=== PATIENT | female | born 1995 | race Asian ===

== ENCOUNTER 2017-01-23 15:04 | Emergency (ER) | payer OTHER ==
[2017-01-23] MEDS ORDERED: Ondansetron INJ* 2 MG/ML VIAL IV ONE (15:34)
[2017-01-23] MEDS ORDERED: NS 0.9% 1000 ML* 2,000 ML IV ONE (15:34)
[2017-01-23 15:51] LABS: Add Diff/Slide Review? Slide Review Added; Comments Flag Yes; Hematocrit 40 % (35-47); Hemoglobin 14.1 g/dl (12.0-16.0); Mean Corpuscular HGB Conc 35 g/dl (31-36); Mean Corpuscular Hemoglobin 31 pg (27-31); Mean Corpuscular Volume 88 fL (80-97); Mean Platelet Volume 6 um3 (7.4-10.4); Red Blood Count 4.57 10^6/ul (4.0-5.4); Red Cell Distribution Width 13 % (10.5-15); White Blood Count 8.3 10^3/ul (3.5-10.8)
[2017-01-23 16:06] LABS: ALT 16 U/L (7-52); AST 21 U/L (13-39); Albumin 4.5 g/dL (3.2-5.2); Alkaline Phosphatase 53 U/L (34-104); Anion Gap 11 mmol/L (2-11); BUN/Creatinine Ratio 20.3 (8-20); Blood Urea Nitrogen 13 mg/dL (6-24); C Reactive Protein < 1.00 mg/L (< 5.00); CO2 Carbon Dioxide 25 mmol/L (22-32); Calcium 9.4 mg/dL (8.6-10.3); Chloride 102 mmol/L (101-111); EGFR African American 150.6 (>60); EGFR Non-African American 117.1 (>60); Globulin 3.4 g/dL (2-4); Glucose 84 mg/dL (70-100); Lipase 16 U/L (11.0-82.0); Potassium 3.5 mmol/L (3.5-5.0); Sodium 138 mmol/L (133-145); Total Protein 7.9 g/dL (6.4-8.9)
[2017-01-23] MEDS ORDERED: Ondansetron ODT TAB* 4 MG PO ONE (16:34)
--- NOTE | 2017-01-23 17:07 | ED ---
Osiris Ford Emily, scribed for Lenin Pathak MD on 01/23/17 at 1534 . Complex/Multi-Sys Presentation - HPI Summary HPI Summary: This patient is a 21 year old F presenting [place] [facility] accompanied by friend with a chief complaint of nausea and vomiting that began this morning. The patient rates the pain 0/10 in severity. Symptoms aggravated by nothing. Symptoms alleviated by nothing. Patient reports infrequent urination, headache, and dizziness (room-spinning). Patient denies nasal discharge, sore throat, cough, diarrhea, and abd pain. Patient denies sick contacts at home. - History Of Current Complaint Chief Complaint: EDNauseaVomitDiarrh Time Seen by Provider: 01/23/17 15:26 Hx Obtained From: Patient Onset/Duration: Sudden Onset, Lasting Hours, Still Present Timing: Constant Severity Currently: Mild Severity Initially: Mild Associated Signs And Symptoms: Positive: Other - Positive infrequent urination, headache and dizziness (room-spinning). Negative nasal discharge, sore throat, cough, diarrhea, and abd pain - Allergies/Home Medications Allergies/Adverse Reactions: Allergies Allergy/AdvReac Type Severity Reaction Status Date / Time No Known Allergies Allergy Verified 01/23/17 15:19 PMH/Surg Hx/FS Hx/Imm Hx Previously Healthy: Yes Endocrine/Hematology History: Denies: Hx Diabetes Cardiovascular History: Denies: Hx Hypertension Infectious Disease History: No Infectious Disease History: Denies: Traveled Outside the [place] in Last 30 Days - Family History Known Family History: Negative: Cardiac Disease, Diabetes - Social History Occupation: Student Lives: Dormitory/Roommates Alcohol Use: Occasionally Review of Systems Negative: Sore Throat, Nasal Discharge Negative: Cough Positive: Vomiting, Nausea. Negative: Abdominal Pain, Diarrhea Positive: other - Positive infrequent urination Neurological: Other - Positive dizziness Positive: Headache All Other Systems Reviewed And Are Negative: Yes Physical Exam Triage Information Reviewed: Yes Vital Signs On Initial Exam: Initial Vitals Temp Pulse Resp BP Pulse Ox 97.8 F 88 14 124/74 100 01/23/17 15:14 01/23/17 15:14 01/23/17 15:14 01/23/17 15:14 01/23/17 15:14 Vital Signs Reviewed: Yes Appearance: Positive: Well-Appearing, No Pain Distress Skin: Positive: Warm, Skin Color Reflects Adequate Perfusion, Dry Head/Face: Positive: Normal Head/Face Inspection Eyes: Positive: EOMI, CINDY ENT: Positive: Other - Oral mucosa slightly dry Neck: Positive: Supple, Nontender Respiratory/Lung Sounds: Positive: Clear to Auscultation, Breath Sounds Present Cardiovascular: Positive: RRR Abdomen Description: Positive: Nontender, Soft Bowel Sounds: Positive: Present Musculoskeletal: Positive: Normal, Strength/ROM Intact Neurological: Positive: Normal, Sensory/Motor Intact, Alert, Oriented to Person Place, Time Psychiatric: Positive: Affect/Mood Appropriate Diagnostics - Vital Signs Vital Signs Temp Pulse Resp BP Pulse Ox 01/23/17 15:14 97.8 F 88 14 124/74 100 - Laboratory Lab Results: Lab Results 01/23/17 01/23/17 01/23/17 Range/Units 15:40 15:40 15:40 WBC 8.3 (3.5-10.8) 10^3/ul RBC 4.57 (4.0-5.4) 10^6/ul Hgb 14.1 (12.0-16.0) g/dl Hct 40 (35-47) % MCV 88 (80-97) fL MCH 31 (27-31) pg MCHC 35 (31-36) g/dl RDW 13 (10.5-15) % Plt Count 404 (150-450) 10^3/ul MPV 6 L (7.4-10.4) um3 Neut % (Auto) 83.5 H (38-83) % Lymph % (Auto) 5.7 L (25-47) % [place] % (Auto) 8.8 (1-9) % Eos % (Auto) 1.5 (0-6) % Baso % (Auto) 0.5 (0-2) % Absolute Neuts (auto) 7.0 (1.5-7.7) 10^3/ul Absolute Lymphs (auto) 0.5 L (1.0-4.8) 10^3/ul Absolute Monos (auto) 0.7 (0-0.8) 10^3/ul Absolute Eos (auto) 0.1 (0-0.6) 10^3/ul Absolute Basos (auto) 0 (0-0.2) 10^3/ul Absolute Nucleated RBC 0.04 10^3/ul Nucleated RBC % 0.5 Sodium 138 (133-145) mmol/L Potassium 3.5 (3.5-5.0) mmol/L Chloride 102 (101-111) mmol/L Carbon Dioxide 25 (22-32) mmol/L Anion Gap 11 (2-11) mmol/L BUN 13 (6-24) mg/dL Creatinine 0.64 (0.51-0.95) mg/dL Est GFR ( Amer) 150.6 (>60) Est GFR (Non-Af Amer) 117.1 (>60) BUN/Creatinine Ratio 20.3 H (8-20) Glucose 84 (70-100) mg/dL Lactic Acid 1.8 (0.5-2.0) mmol/L Calcium 9.4 (8.6-10.3) mg/dL Total Bilirubin 0.50 (0.2-1.0) mg/dL AST 21 (13-39) U/L ALT 16 (7-52) U/L Alkaline Phosphatase 53 (34-104) U/L C-Reactive Protein < 1.00 (< 5.00) mg/L Total Protein 7.9 (6.4-8.9) g/dL Albumin 4.5 (3.2-5.2) g/dL Globulin 3.4 (2-4) g/dL Albumin/Globulin Ratio 1.3 (1-3) Lipase 16 (11.0-82.0) U/L Beta HCG, Quant < 0.60 mIU/mL Result Diagrams: 01/23/17 15:40 01/23/17 15:40 Lab Statement: Any lab studies that have been ordered have been reviewed, and results considered in the medical decision making process. Re-Evaluation - Re-Evaluation First Eval Re-Evaluation Time: 16:40 Change: Improved - Pt has not yet been able to urinate Complex Multi-Symp Course/Dx Course Of Treatment: IMPROVED IN ED AFTER IVF AND ZOFRAN. DISCUSSED RESULTS WITH PATIENT. NO ABDOMINAL PAIN BY HISTORY OR ABDOMINAL TENDERNESS ON EXAM. F/ U [facility]; RETURN IF WORSE. - Diagnoses Provider Diagnoses: Dehydration, Nausea and vomiting Discharge - Discharge Plan Condition: Stable Disposition: HOME Prescriptions: Ondansetron ODT TAB* [Zofran 4 MG Odt TAB*] 4 mg PO Q6H PRN #10 tab.odt PRN Reason: Nausea Patient Education Materials: Dehydration (ED), Acute Nausea and Vomiting (ED) Referrals: [facility] - Martin RETANA [Primary Care Provider] - Additional Instructions: FOLLOW UP WITH [facility]. RETURN TO THE EMERGENCY DEPARTMENT FOR ANY WORSENING OF YOUR CONDITION OR QUESTIONS OR CONCERNS. The documentation as recorded by the Osiris licea Emily accurately reflects the service I personally performed and the decisions made by me, Lenin Pathak MD.
[2017-01-23 17:08] VITALS: BP 110/51
== END 2017-01-23 17:22 | disposition home or self-care (01) ==
LOC: ED 15:04
DX: E86.0 Dehydration (principal); R11.2 Nausea with vomiting, unspecified
CPT/HCPCS: 36415; 80053; 83605; 83690; 84702; 85025; 86140; 96360; 96374; 99282; A9270-GY; J2405